=== PATIENT | male | born 1980 | race African-American/Black ===

== ENCOUNTER 2018-12-22 02:00 | Emergency (ER) | payer BC, OTHER ==
[~2018-12-22] VITALS: Ht 185.4 cm; Wt 88.6 kg
[2018-12-22 02:00] VITALS: Ht 185.4 cm; Wt 88.6 kg
[~2018-12-22 02:00] MED LIST: DIAZ5TAB PO; IBUP800T48 PO
[2018-12-22] MEDS ORDERED: KETOROLAC 30 MG INJ IM STA (02:09)
[2018-12-22 02:25] VITALS: BP 139/88; PULSE 89; RESP 20
== END 2018-12-22 02:25 | disposition home or self-care (01) ==
LOC: E/R 02:00
DX: M54.5 Low back pain (principal); G89.29 Other chronic pain; F17.210 Nicotine dependence, cigarettes, uncomplicated
CPT/HCPCS: 96372; 99284; J1885